=== PATIENT | female | born 1930 | race Caucasian/White ===

== ENCOUNTER 2020-06-29 06:10 | Day surgery (SDC) | payer MEDICARE, BC ==
[~2020-06-29] VITALS: Ht 154.9 cm; Wt 86.4 kg
--- NOTE | ~2020-06-29 | OP ---
PATIENT NAME: NICK ROBB MEDICAL RECORD: [id number] :[birth year] LOCATION:[facility] ADMISSION DATE: SURGEON: AMIRAH LOU DO DATE OF OPERATION: 06/29/2020 PROCEDURE: EGD with biopsies and balloon dilation. INDICATION FOR PROCEDURE: Dysphagia and GERD. SCOPE: Olympus video gastroscope. MEDICATIONS: Propofol 120 mg IV per anesthesia. ESTIMATED BLOOD LOSS: Minimal. COMPLICATIONS: None. FINDINGS AND DESCRIPTION OF PROCEDURE: Informed consent was given. The patient was made comfortable with the above medication. After reaching an adequate level of sedation by slow IV push, the patient was placed on her left side. The endoscope was advanced under direct visualization through the mouth to the second portion of the duodenum with ease. Esophagus appeared normal down to the distal esophagus and GE junction. There was a suggestion of some esophageal stenosis, so a CRE dilating balloon was placed through the working channel of the endoscope and the distal esophagus was dilated up to 18-mm maximum diameter successfully. At the GE junction, there were changes consistent with LA class C reflux-induced esophagitis and possible Baker's mucosa. Cold forceps biopsies were taken from the squamocolumnar junction to evaluate this. The endoscope was advanced beyond the GE junction into the stomach and retroflexed to view of the cardia and fundus. There was a small sliding hiatal hernia. Throughout the stomach, there were patchy areas of erythema, granularity and some minor erosions mainly in the antrum region consistent with chronic mild gastritis. Cold forceps biopsies were taken from the antrum and incisura to submit for histopathology and to rule out the presence of H. pylori. The endoscope was advanced beyond the pylorus into the duodenum, which appeared normal to the second portion. Cold forceps biopsies were taken to submit for histopathology. The endoscope was withdrawn from the patient. The patient tolerated the procedure well. There were no complications. IMPRESSION: 1. LA class C reflux-induced esophagitis. 2. 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 3. Small sliding hiatal hernia. 4. Mild chronic gastritis changes. PLAN AND RECOMMENDATIONS: 1. Discharge home when recovery parameters are met. 2. Follow up biopsy specimen results. 3. GERD diet and reflux precautions. 4. Continue current medications. 5. Follow up in GI clinic in 6 to 8 weeks. 6. If symptoms of dysphagia persist, consider esophageal manometry study as well as a pH study based on reports of change in voice and hoarseness. OPERATIVE REPORT [id number] NICK ROBB TRANSINT:[id number] Voice Confirmation ID: [id number] DOCUMENT ID: [id number] AMIRAH LOU DO CC: [id number] DICTATION DATE: 06/29/20822 MARINE MECHANIC: 06/29/20 1437 [facility] 06/29/20 [place] [id number] [place] [id number]
[2020-06-29 06:50] LABS: INR 1.06 (0.85-1.17); PROTIME 12.8 SECONDS (11.6-15.0)
[2020-06-29 06:53] LABS: ALBUMIN 3.6 g/dL (3.4-5.0); ANION GAP 10.5 mmol/L (8-16); BILIRUBIN - TOTAL 0.47 mg/dL (0.2-1.3); CARBON DIOXIDE 27.7 mmol/L (21.0-32.0); CREATININE - SERUM 0.8 mg/dL (0.6-1.3); POTASSIUM - SERUM 4.2 mmol/L (3.5-5.1); PROTEIN - SERUM 7.3 g/dL (6.4-8.2)
[2020-06-29 07:08] LABS: BASOPHILS 0.4 % (0-2); EOSINOPHILS 2.7 % (0-7); HEMATOCRIT 36.8 % (36.0-48.0); HEMOGLOBIN 11.9 g/dL (12-16); IMMATURE GRANULOCYTES 0.3 % (0-5); LYMPHOCYTE ABS# 1.58 10x3/uL (1.18-3.74); LYMPHOCYTES 20.2 % (15-50); MCH 28.4 pg (26.0-34.0); MCHC 32.3 g/dL (31.0-37.0); MCV 87.8 fL (80.0-100.0); MONOCYTES 13.7 % (2-11); NEUTROPHIL ABS# 4.92 10x3/uL (1.56-6.13); NEUTROPHILS 62.7 % (40-80); PLATELET COUNT 313 10x3/uL (130-400); RBC 4.19 10x6/uL (4.00-5.40); RDW 14.5 % (11.5-14.5); WBC 7.8 10x3/uL (4.8-10.8)
[2020-06-29 07:10] VITALS: BP 138/70; Ht 154.9 cm; Wt 86.4 kg
[2020-06-29] MEDS ORDERED: LINZESS145 MCG PO (07:35)
[2020-06-29] MEDS ORDERED: PROTONIX40 MG PO (07:36)
[2020-06-29] MEDS ORDERED: MOBIC7.5 MG PO (07:36)
[2020-06-29] MEDS ORDERED: CYMBALTA30 MG PO (07:37)
[2020-06-29] MEDS ORDERED: CYMBALTA60 MG PO (07:38)
[2020-06-29] MEDS ORDERED: RYTARY ER 36.21 EACH PO (07:39)
[2020-06-29] MEDS ORDERED: JANUVIA100 MG PO (07:40)
[2020-06-29] MEDS ORDERED: TRILEPTAL300 MG (07:40)
[2020-06-29] MEDS ORDERED: MIRAPEX0.25 MG PO (07:41)
[2020-06-29] MEDS ORDERED: FUROSEMIDE40 MG PO (07:42)
[2020-06-29] MEDS ORDERED: MACROBID100 MG PO (07:42)
[2020-06-29] MEDS ORDERED: LEVOTHYROXINE150 MCG PO (07:43)
[2020-06-29] MEDS ORDERED: ULTRAM50 MG PO (07:43)
[2020-06-29] MEDS ORDERED: ISOSORBIDE MONO30 M1 PO (07:44)
[2020-06-29] MEDS ORDERED: SEROQUEL25 MG PO (07:44)
[2020-06-29] MEDS ORDERED: MACRODANTIN100 MG PO (07:45)
[2020-06-29] MEDS ORDERED: PRINIVIL20 MG PO (07:46)
--- NOTE | 2020-06-29 08:59 | NUR ---
DC INSTRUCTIONS GIVEN TO PT/FAMILY. STATE UNDERSTANDING. DC'D IV CATH FULLY INTACT. WILL DC SHORTLY.
--- NOTE | 2020-06-29 09:11 | NUR ---
PT LEFT UNIT VIA WC AT 0915
== END 2020-06-29 09:15 | disposition home or self-care (01) ==
LOC: D.OPS 06:10
PROVIDERS: Anesthesiology; ATTEND Internal Medicine Gastroenterology
DX: R13.10 Dysphagia, unspecified (principal); K21.00 Gastro-esophageal reflux disease with esophagitis, without bleeding; K22.2 Esophageal obstruction; K44.9 Diaphragmatic hernia without obstruction or gangrene; K29.50 Unspecified chronic gastritis without bleeding